=== PATIENT | male | born 1985 | race Native Hawaiian/Other Pacific Islander ===

== ENCOUNTER 2016-06-07 20:14 | Emergency (ER) | payer OTHER ==
[~2016-06-07] VITALS: Ht 185.4 cm; Wt 93.4 kg
[2016-06-07 21:21] LABS: PLATELET COUNT 268 K/uL (142-355)
[2016-06-07 21:31] LABS: POTASSIUM 3.7 mmol/L (3.6-5.2); SODIUM 133 mmol/L (136-145)
[2016-06-07 23:15] VITALS: BP 129/77; TEMP 98
== END 2016-06-07 23:19 | disposition home or self-care (01) ==
LOC: ED 20:14
PROVIDERS: Emergency Medicine
DX: E86.9 Volume depletion, unspecified (principal); R11.2 Nausea with vomiting, unspecified
CPT/HCPCS: 36415; 80053; 80307; 81000; 85027; 96361; 96374; 99284; G0479; J2405

== ENCOUNTER 2019-01-22 10:22 | Emergency (ER) | payer OTHER ==
[~2019-01-22] VITALS: Ht 185.4 cm; Wt 104.3 kg
[2019-01-22 10:31] VITALS: TEMP 99
[2019-01-22 11:42] VITALS: BP 138/86
== END 2019-01-22 11:42 | disposition home or self-care (01) ==
LOC: ED 10:22
DX: M54.5 Low back pain (principal); R05 Cough; X50.9XXA Other and unspecified overexertion or strenuous movements or postures, initial encounter
CPT/HCPCS: 99282

== ENCOUNTER 2019-05-08 08:05 | Emergency (ER) | payer BC ==
[~2019-05-08] VITALS: Ht 185.4 cm; Wt 104.3 kg
[2019-05-08 08:12] VITALS: BP 177/92; TEMP 98.8
[2019-05-08 08:59] LABS: PLATELET COUNT 259 K/uL (142-355)
[2019-05-08 09:04] LABS: POTASSIUM 4.1 mmol/L (3.6-5.2)
== END 2019-05-08 09:33 | disposition home or self-care (01) ==
LOC: ED 08:05
PROVIDERS: Family Medicine
DX: K64.4 Residual hemorrhoidal skin tags (principal)
CPT/HCPCS: 80053; 85027; 99282; 99283